=== PATIENT | female | born 1945 | race Caucasian/White ===

== ENCOUNTER 2022-07-31 15:50 | Emergency (ER) | payer OTHER, MEDICARE ==
[~2022-07-31] VITALS: Ht 154.9 cm; Wt 59.0 kg
[2022-07-31 15:50] VITALS: BP_SYST 178
[2022-07-31 16:54] LABS: BASOPHILS % (AUTO) 0.5 % (0.0-2.0); EOSINOPHILS # (AUTO) 0.1 K/uL (0.0-0.4); EOSINOPHILS % (AUTO) 0.9 % (0.0-4.0); HEMATOCRIT 37.3 % (36-48); HEMOGLOBIN 12.2 g/dL (12.0-16.0); LYMPHOCYTES # (AUTO) 1.2 K/uL (1.0-5.5); LYMPHOCYTES % (AUTO) 18.1 % (20.5-51.5); MEAN CORPUSCULAR HEMOGLOBIN 29 pg (27-31); MEAN CORPUSCULAR HGB CONC 33 % (32-36); MEAN CORPUSCULAR VOLUME 89 fL (79.0-98.0); MONOCYTES # (AUTO) 0.5 K/uL (0.0-1.0); MONOCYTES % (AUTO) 6.8 % (1.7-9.3); NEUTROPHILS # (AUTO) 5.1 K/uL (1.8-7.7); NEUTROPHILS % (AUTO) 73.7 % (40.0-70.0); PLATELET COUNT (AUTO) 205 K/uL (130-430); RED BLOOD CELL COUNT(AUTO) 4.18 MIL/uL (4.2-6.2); RED CELL DISTRIBUTION WIDTH 13.9 % (9.0-15.0); WHITE BLOOD COUNT (AUTO) 6.9 K/uL (4.8-10.8)
[2022-07-31 17:20] LABS: ALANINE AMINOTRANSFERASE 21 U/L (12-78); ALBUMIN 3.6 g/dL (3.4-4.8); ANION GAP 9 (5-15); ASPARTATE AMINOTRANSFERASE 29 U/L (10-37); CALCIUM 8.8 mg/dL (8.4-11.0); CHLORIDE 101 mmol/L (98-107); CREATININE 0.66 mg/dL (0.55-1.30); GLUCOSE 123 mg/dL (70-99); TOTAL BILIRUBIN 0.4 mg/dL (0.0-1.0); UREA NITROGEN, BLOOD 5 mg/dL (8-21)
[2022-07-31] MEDS ORDERED: levETIRAcetam 500 MG in NS 100 ML IV ONE (18:30)
[2022-07-31 20:36] VITALS: BP_SYST 162
== END 2022-07-31 20:35 | disposition short-term general hospital (02) ==
LOC: SED 15:50
DX: R55 Syncope and collapse (principal); R22.0 Localized swelling, mass and lump, head; E11.9 Type 2 diabetes mellitus without complications; E78.5 Hyperlipidemia, unspecified; Z88.1 Allergy status to other antibiotic agents; Z79.899 Other long term (current) drug therapy
CPT/HCPCS: 99285; 70450; 96365; 71045; 80053; 85025; 84484; 36415; 93005; 70486; 72125; 76376; J1953